=== PATIENT | male | born 1980 | race Caucasian/White ===

== ENCOUNTER 2018-05-21 10:52 | Emergency (ER) | payer BC, SELFPAY ==
[2018-05-21 10:53] VITALS: BP 144/79; PULSE 69; RESP 18; TEMP 36.6; O2SAT 99; BMI 27.2
--- NOTE | 2018-05-21 11:04 | RAD_ITS ---
STUDY: X-RAY - RIGHT HAND, ATTENTION FOURTH FINGER REASON FOR EXAM: Male, 38 years old. Smash injury TECHNIQUE: 3 view(s) of the finger were obtained. COMPARISON: None. FINDINGS: Mildly displaced through the distal tuft of the fourth digit with subjacent soft tissue injury. RAD/Finger(s) Min 2 Views IMPRESSION: As above Electronically Signed: George Allen DO at 11:35 EDT Tel , Service support ,
--- NOTE | 2018-05-21 12:28 | ED.VISSUMM ---
- ER Visit Summary Date of Service: 05/21/18 Chief Complaint: Crush injury History of Present Illness: The patient is a 38 M with a crush injury to his right ring finger. This was yesterday. He dropped a weight on the finger. Last tetanus immunization was less than 3 years ago. No other injuries or complaints today. Physical Examination: Vitals unremarkable. Alert and oriented. Appropriate. Right ring finger shows a crush injury to the distal phalanx. Proximal nail is out of the matrix. There is a 1 cm laceration transversely across the nailbed. This does extend through the radial and ulnar sides of the nailbed into the skin, several millimeters on each side. Neurovascular intact distally. Test Results: X-rays show a distal tuft fracture. Emergency Department Course and Treatment: Tetanus is up-to-date. Digital block was performed. Patient tolerated this well. Nail was completely removed. He did have a transverse laceration through the bed. This was cleaned and explored under good hemostasis. Good alignment. No tissue was missing. This was closed with tissue adhesive. Nail was cleaned and replaced using the Saleem et al technique. Additional cutaneous sutures were placed about 1 on each side of the nailbed to close the skin laceration. Patient tolerated this well. Neurovascular intact distally afterwards. He was started on Keflex and was referred to hand surgery for follow-up. He was referred to Dr. More. He is also established with the [facility]. He was given the number to Dr. Armstrong as well if he has difficulty following up with Dr. More over the next week. Return for any new or worsening issues. Treatment Plan: As above Disposition: Discharged Impression: 1. Right fourth finger nailbed laceration 1 cm 2. Right fourth finger tuft fracture This note was generated with Clear[employer] software. It may contain incorrect words, spelling, and punctuation that were not noted in review of the chart prior to signing ED Disposition - Plan for ED Patient: Chief Complaint: Upper Extremity Injury Referrals: Jonathon Blackburn MD [Primary Care Provider] -
--- NOTE | 2018-05-21 12:32 | ED.DCSUM_ITS ---
- ER Visit Summary Date of Service: 05/21/18 Chief Complaint: Crush injury History of Present Illness: The patient is a 38 M with a crush injury to his right ring finger. This was yesterday. He dropped a weight on the finger. Last tetanus immunization was less than 3 years ago. No other injuries or comp laints today. Physical Examination: Vitals unremarkable. Alert and oriented. Appropriate. Right ring finger shows a crush injury to the distal phalanx. Proximal nail is out of the matrix. There is a 1 cm laceration transversely across the nailbed. This does extend through the radial and ulnar sides of the nailbed into the skin, several millimeters on each side. Neurovascular intact distally. Test Results: X-rays show a distal tuft fracture. Emergency Department Course and Treatment: Tetanus is up-to-date. Digital block was performed. Patient tolerated this well. Nail was completely removed. He did have a transverse laceration through the bed. This was cleaned and explored under good hemostasis. Good alignment. No tissue was missing. This was closed with tissue adhesive. Nail was cleaned and replaced using the Saleem et al technique. Additional cutaneous sutures were placed about 1 on each side of the nailbed to close the skin laceration. Patient tolerated this well. Neurovascular intact distally afterwards. He was started on Keflex and was referred to hand surgery for follow-up. He was referred to Dr. More. He is also established with the [place] [facility]. He was given the number to Dr. Armstrong as well if he has difficulty following up with Dr. More over the next week. Return for any new or worsening issues. Treatment Plan: As above Disposition: Discharged Impression: 1. Right fourth finger nailbed laceration 1 cm 2. Right fourth finger tuft fracture This note was generated with Learn[employer] software. It may contain incorrect words, spelling, and punctuation that were not noted in review of the chart prior to signing ED Disposition - Plan for ED Patient: Chief Complaint: Upper Extremity Injury Referrals: Jonathon Blackburn MD [Primary Care Provider] -
--- NOTE | 2018-05-21 12:32 | ED.DEP ---
ED Disposition - Plan for ED Patient: Chief Complaint: Upper Extremity Injury Instructions: ED Removal Nail Prescriptions: Cephalexin [Keflex] 500 mg PO Q6 #40 cap Referrals: Warren More MD [STAFF PHYSICIAN] - Jonathon Armstrong MD [NON-STAFF] -
[2018-05-21] MEDS: Cephalexin 250 MG Capsule 500 MG PO (12:48)
== END 2018-05-21 12:51 | disposition home or self-care (01) ==
PROVIDERS: Emergency Provider Emergency Medicine; Family Provider Family Medicine; PCP Family Medicine
DX: S62.634A Displaced fracture of distal phalanx of right ring finger, initial encounter for closed fracture (principal); S61.314A Laceration without foreign body of right ring finger with damage to nail, initial encounter; W22.8XXA Striking against or struck by other objects, initial encounter; Y93.9 Activity, unspecified; Y92.9 Unspecified place or not applicable
CPT/HCPCS: 11760; 73140; 99282

== ENCOUNTER → 2019-08-03 09:16 | Outpatient (CLI) | payer BC, SELFPAY ==
[2019-08-03 11:29] LABS: Anion Gap 6 (5-15); BUN 20 mg/dL (7-18); Calcium,Total 8.9 mg/dL (8.5-10.1); Chloride 109 mmol/L (98-107); Cholesterol 167 mg/dL (200); EST Glomerular Filtration Rate 88 mL/min (>60); Est Glom Filt Rate - Afr Amer 106 mL/min (>60); Glucose 95 mg/dL (74-106); High Density Lipoprotein 70 mg/dL; Potassium 4.9 mmol/L (3.5-5.1); Sodium Level 141 mmol/L (136-145); Triglycerides 52 mg/dL; Very Low Density Lipoprotein 10 mg/dL (5-40)
== END ==
PROVIDERS: Family Provider Family Medicine; PCP Family Medicine; Visit Provider Family Medicine
DX: Z13.1 Encounter for screening for diabetes mellitus (principal); Z13.220 Encounter for screening for lipoid disorders
CPT/HCPCS: 36415; 80048; 80061

== ENCOUNTER 2021-01-07 07:32 | Emergency (ER) | payer BC, SELFPAY ==
[2021-01-07 07:33] VITALS: BP 136/76; PULSE 87; RESP 16; TEMP 36.6; O2SAT 97; BMI 27.9
--- NOTE | 2021-01-07 07:50 | CT_ITS ---
STUDY: CT ABDOMEN AND PELVIS WITH CONTRAST REASON FOR EXAM: Male, 40 years old. 5 day history of diffuse abdominal pain with nausea and diarrhea. RADIATION DOSAGE (If Supplied By Facility): CTDIvol = ( 12.14 ) mGy, DLP = ( 906.45 ) mGycm TECHNIQUE: Transaxial images were obtained from the dome of the diaphragm to the symphysis pubis without oral contrast. IV 100mL Isovue-300 was administered. Sagittal and coronal images were reconstructed. Individualized dose optimization techniques were used for this CT. COMPARISON: None. FINDINGS: Minimal degree of dependent bibasilar atelectasis. The visualized portions of the heart are within normal limits. Normal liver. Normal gallbladder and extrahepatic biliary system. Normal spleen. Normal pancreas. Normal bilateral adrenal glands. Normal right kidney. Normal left kidney. There is a small hiatal hernia. Normal small intestine. There is evidence of diffuse edematous changes and thickening of the colon suggestive of a pancolitis. Mild increased markings in the surrounding peritoneal fat. The appendix is visualized and appears normal. There is scattered atherosclerotic calcification of the abdominal aorta, without a demonstrated aneurysm. Normal inferior vena cava. There is borderline retroperitoneal lymphadenopathy with enlarged nodes no greater than 10mm in the short axis diameter. Normal urinary bladder. Small amount of free fluid is seen in the pelvis. Normal abdominal wall. There is evidence of prior screw fixation of the posterior aspect of the left acetabulum. Well-corticated bony fragments are seen overlying the left hip joint most likely secondary to prior trauma. CT/Abdomen/Pelvis W IV Cont ONLY IMPRESSION: Findings in keeping with the pancolitis. Small amount of fluid is seen in the pelvis. Electronically Signed: José Fernandez MD at 9:04 EDT , Service support ,
--- NOTE | 2021-01-07 07:51 | EDS_ITS ---
HPI HPI - GI History of Present Illness Chief Complaint: Abd Pain Informant: patient and spouse/S.O. Abdominal Pain/Flank Pain Onset: Days Context: Gradual Onset Timing: Continuous Location: Diffuse Current Severity: Mild Maximum Severity: Mild Worsened by: Nothing Nausea/Vomiting/Emesis GI Symptom: Positive for Nausea; Negative for Vomiting Severity: Mild Diarrhea/Melena/Hematochezia GI Symptom: Positive for Diarrhea and Hematochezia; Negative for Melena Onset: Today Stool Quality: Positive for Loose and Watery Severity: Mild Associated Symptoms Associated Symptoms: Negative for Dysuria, Frequency and Hematuria Narrative Narrative: Middle-age man is seen in past medical history. No prior GI surgeries. States that he has had abdominal discomfort diffusely for last 5 days beginning last Tuesday. Fever as high as 100 201. Nausea but no vomiting. Diarrhea. About 10 episodes yesterday. Patient is accompanied by his . They drink city water at home. No recent travel, surgery nor any recent antibiotics. No one else at home has similar symptoms. Patient is fully vaccinated for Covid and had Covid. He saw his primary care physician yesterday. He denies any dysuria. He did have a small amount of blood in his stool this morning after multiple episodes of diarrhea in the last several days. No melena. Prior similar symptoms: No Recent Illness/Hospitalization: No PFSH PFSH Medical History (Updated 01/07/21 @ 10:[address] Serafin Allen MD) Hip dislocation, left no medical history Home Medications ciprofloxacin HCl [Cipro] 500 mg PO BID #14 tab 01/07/21 [Rx Last Taken Unknown] metronidazole [Flagyl] 500 mg PO TID 7 Days #21 tab 01/07/21 [Rx Last Taken Unknown] Allergy/AdvReac Type Severity Reaction Status Date / Time No Known Allergies Allergy Verified 01/07/21 07:36 Social History Smoking Status: Never smoker ROS ROS ED ROS Narrative Patient describes diarrhea, abdominal pain and nausea last 4 to 5 days. Review of Systems ROS Unobtainable: Denies due to encephalopathy Constitutional Constitutional ED: Reports fever(s); Denies chills ENT ENT ED: Denies ear pain or sore throat Cardiovascular Cardiovascular: Denies chest pain or racing heartbeat Respiratory/Chest Respiratory/Chest: Denies cough or dyspnea Gastrointestinal Gastrointestinal: Reports abdominal pain, diarrhea and nausea; Denies constipation, melena or vomiting Genitourinary Genitourinary ED: Denies dysuria, hematuria or urinary frequency Musculoskeletal Musculoskeletal: Denies arthralgias or myalgias Integumentary Denies abscess or rash Neurologic Neurologic: Denies headache(s) or weakness Psychiatric Psychiatric: Denies anxiety or depression Endocrine Endocrinology: Denies polydipsia or polyuria Hematologic/Lymphatic Hematologic/Lymphatic: Denies easy bruising Allergic/Immunologic Allergic/Immunologic ED: Denies urticaria EXAM Physical Exam Narrative Exam Narrative: Well-appearing middle-age male. at bedside. Vital signs stable and afebrile. He does not look septic nor toxic. He does not look dehydrated. HEENT exam unremarkable. Moist extremities. Lungs clear to auscultation. Heart regular rhythm no murmur. Abdomen soft nontender normal bowel sounds no peritoneal signs. No right upper right lower quadrant tenderness. No signs of obstruction. Normal bowel sounds. Soft. Moving all 4 extremities. Skin unremarkable. Back nontender. Neurologically is awake alert with no focal motor deficits. Const Vital Signs: 01/07/21 07:33 Temperature 97.8 F Temperature Source Temporal Pulse Rate 87 Respiratory Rate 16 Blood Pressure 136/76 H Blood Pressure Mean 96 Pulse Ox 97 Oxygen Delivery Method Room Air Positive well nourished and well developed; Negative for obese, cachectic or contractures General Appearance ED: well developed; Negative for cachectic or contractures Nutritional Appearance: Negative for cachectic or obese HEENT Reports moist mucous membranes normocephalic and atraumatic; Negative for trauma or tenderness Eyes PERRL and EOMs intact bilaterally General Eye ED: Negative for pale conjunctiva Neck no lymphadenopathy, supple and no JVD General: Negative for tenderness Resp normal respiratory effort and clear to auscultation bilaterally Auscultation: Negative for rales, rhonchi or wheezes Cardio regular rate, regular rhythm, S1 normal heart sound and no murmurs GI non-tender, non-distended and no masses Inspection: Negative for abdominal distention Auscultation: normoactive bowel sounds Palpation: soft; Negative for tender, guarding, rigid or rebound tenderness pres ent Back/Spine no CVA tenderness General Back: Negative for CVA tenderness Cervical Spine: Negative for cervical spine tenderness Extremity full ROM General Extremety ED: Negative for edema or tenderness General Extremity: Negative for edema Neuro CN's II-XII intact bilaterally and moves all extremities Sensorium / Orientation: alert, oriented to person, oriented to place, oriented to time and orientation impaired; Negative for confused, lethargic or stuporous Psych mental status grossly normal and thought process normal Skin no wounds Lesions: no lesions Rashes: no rashes MDM MDM MDM Narrative Medical decision making narrative: Middle-age male with 5-day history of loose stools with intermittent low-grade fever. Exam is benign. Abdomen is benign. He will undergo screening labs along with a CAT scan his abdomen pelvis and receive IV fluids. I spoke with general surgery on-call after the CAT scan results. He felt the patient would be best served by a GI work-up in case this is inflammatory bowel disease. I spoke to Dr. Antonio Wilhelm of GI he knows the patient's family and will follow up with him as an outpatient. He did want me to start the patient on Flagyl and Cipro. This was all discussed with the patient and his . Lab Data Attestation: I reviewed the patient's lab results. Lab results narrative: Patient CBC was unremarkable with a white count of 7 hemoglobin 14. No bands. Chemistries, liver enzymes and lipase were all normal. Labs: Laboratory Results - last 24 hr 01/07/21 01/07/21 07:50 07:50 WBC 7.5 RBC 4.88 Hgb 14.7 Hct 42.2 MCV 86.5 MCH 30.1 MCHC 34.8 RDW Std Deviation 37.2 RDW Coeff of [place] 11.7 Plt Count 219 MPV 9.3 Immature Gran % (Auto) 0.700 Neut % (Auto) 69.6 Lymph % (Auto) 17.6 L [place] % (Auto) 11.3 H Eos % (Auto) 0.1 Baso % (Auto) 0.7 Absolute Neuts (auto) 5.2 Absolute Lymphs (auto) 1.31 Nucleated RBC % 0 Sodium 137 Potassium 3.9 Chloride 106 Carbon Dioxide 25.0 Anion Gap 6 BUN 11 Creatinine 1.07 Estim Creat Clear Calc 93.81 Est GFR (MDRD) Af Amer 98 Est GFR (MDRD) Non-Af 81 BUN/Creatinine Ratio 10.3 Glucose 98 Calcium 9.2 Total Bilirubin 0.90 Direct Bilirubin 0.21 AST 17 ALT 18 Alkaline Phosphatase 64 Total Protein 7.7 Albumin 3.8 Globulin 3.9 Lipase 233 Radiography Diagnostic Testing: Radiology Impression Abdomen/Pelvis CT 01/07/21 07:50 IMPRESSION: Findings in keeping with the pancolitis. Small amount of fluid is seen in the pelvis. Electronically Signed: José Fernandez MD at 9:04 EDT , Service support , Discharge Plan Triage Chief Complaint: Abd Pain ED Provider: Serafin Allen Dx/Rx/DC Orders Clinical Impression: Colitis, Abdominal pain of unknown cause Instructions: ED Abd Pain Cause Unkn Male Inf Td Prescriptions: New metronidazole [Flagyl] 500 mg tablet 500 mg PO TID 7 Days Qty: 21 RF: 0 ciprofloxacin HCl [Cipro] 500 mg tablet 500 mg PO BID Qty: 14 RF: 0 Primary Care Provider: Jonathon Olivas Referrals: Jonathon Olivas MD [Primary Care Provider] - Antonio Wilhelm MD [NON-STAFF] - As soon as possible Activity Restrictions/Additional Instructions: Call and follow-up with Dr. Antonio Wilhelm soon as possible. Cipro in and Flagyl daily as prescribed for 1 week. Plenty of fluids and rest. Tylenol and/or Motrin for pain. Disposition Disposition: Home, self care
[2021-01-07] MEDS: 0.9% Normal Saline 1,000 ML 1000 ML IV (07:57)
[2021-01-07 08:13] LABS: Absolute Lymphocyte Count 1.31 X10^3/uL (0.83-4.51); Absolute Neutrophil Count 5.2 X10^3/uL (2.0-7.7); Basophil# 0.05 X10^3/uL; Basophil% 0.7 % (0-1); Eosinophil# 0.01 X10^3/uL; Eosinophils% 0.1 % (0-5); Hematocrit 42.2 % (40-54); Hemoglobin 14.7 g/dL (13.0-16.5); Lymphocyte # 1.31 X10^3/ul (0.83-4.51); Lymphocyte % 17.6 % (19-41); Mean Corp Hgb Conc 34.8 g/dL (32-36); Mean Corpuscular Hgb 30.1 pg (27.0-32.0); Mean Corpuscular Volume 86.5 fL (80-94); Mean Platelet Vol. 9.3 fl (6.2-12.0); Monocyte# 0.84 X10^3/uL; Monocyte% 11.3 % (0-10); NRBC Flagged by Analyzer 0 % (0-5); Neutrophil % 69.6 % (47-70); Platelet Count 219 K/mm3 (150-450); RBC Distribution Width CV 11.7 % (11.6-14.6); RBC Distribution Width SD 37.2 fl (35.1-43.9); Red Blood Count 4.88 M/mm3 (4.6-6.2); White Blood Count 7.5 K/mm3 (4.4-11.0)
[2021-01-07 08:20] LABS: AST(SGOT) 17 U/L (15-37); Alanine Aminotransfer ALT/SGPT 18 U/L (16-61); Albumin, Serum 3.8 g/dL (3.2-5.0); Alkaline Phosphatase 64 U/L (45-117); Anion Gap 6 (5-15); BUN 11 mg/dL (7-18); BUN/Creat Ratio 10.3 RATIO (10-20); Bilirubin, Direct 0.21 mg/dL (0.00-0.30); Calcium,Total 9.2 mg/dL (8.5-10.1); Chloride 106 mmol/L (98-107); Creatinine, Serum 1.07 mg/dL (0.70-1.30); EST Glomerular Filtration Rate 81 mL/min (>60); Est Glom Filt Rate - Afr Amer 98 mL/min (>60); Estimated Creatinine Clearance 93.81 ml/min; Globulin 3.9 g/dL (2.2-4.2); Glucose 98 mg/dL (74-106); Lipase 233 U/L (73-393); Potassium 3.9 mmol/L (3.5-5.1); Protein, Total 7.7 g/dL (6.4-8.2); Sodium Level 137 mmol/L (136-145)
[2021-01-07 10:21] VITALS: BP 128/69; PULSE 71; RESP 16; O2SAT 98
--- NOTE | 2021-01-07 11:30 | ED.RN ---
PER DR TOVAR REQUEST, THIS NURSE CONTACTED PT ABOUT STOOL SAMPLE RESULTS. INFORMED TO CONTINUE TO TAKE THE 2 ATB. UNSURE THIS IS CAUSING HIS ISSUES. CONTINUE TO FOLLOWUP WITH GI DOCTOR
== END 2021-01-07 10:22 | disposition home or self-care (01) ==
PROVIDERS: Emergency Provider Emergency Medicine; PCP Family Medicine
DX: K52.9 Noninfective gastroenteritis and colitis, unspecified (principal); R10.9 Unspecified abdominal pain; R19.7 Diarrhea, unspecified; Z86.16 Personal history of COVID-19
CPT/HCPCS: 74177; 80048; 80076; 83690; 85025; 87506; 96360; 96361; 99284; J7030; Q9967; A4216

== ENCOUNTER → 2023-02-09 | Outpatient (CLI) | payer BC, SELFPAY ==
[2023-02-09 09:49] LABS: Absolute Lymphocyte Count 1.53 X10^3/uL (0.83-4.51); Absolute Neutrophil Count 1.9 X10^3/uL (2.0-7.7); Basophil# 0.06 X10^3/uL; Basophil% 1.5 % (0-1); Eosinophil# 0.08 X10^3/uL; Hematocrit 38.1 % (40-54); Hemoglobin 13.3 g/dL (13.0-16.5); Lymphocyte # 1.53 X10^3/ul (0.83-4.51); Lymphocyte % 38.5 % (19-41); Mean Corp Hgb Conc 34.9 g/dL (32-36); Mean Corpuscular Hgb 30.4 pg (27.0-32.0); Mean Platelet Vol. 9.1 fl (6.2-12.0); Monocyte% 10.1 % (0-10); NRBC Flagged by Analyzer 0 % (0-5); Neutrophil # 1.88 X10^3/uL (2.7-7.7); Neutrophil % 47.4 % (47-70); Platelet Count 220 K/mm3 (150-450); RBC Distribution Width CV 12.1 % (11.6-14.6); RBC Distribution Width SD 38.9 fl (35.1-43.9); Red Blood Count 4.38 M/mm3 (4.6-6.2)
[2023-02-09 10:36] LABS: ALB/GLOB Ratio 1.2 RATIO (0.9-2.4); AST(SGOT) 19 U/L (15-37); Alanine Aminotransfer ALT/SGPT 24 U/L (16-61); Albumin, Serum 3.9 g/dL (3.2-5.0); Alkaline Phosphatase 43 U/L (45-117); Anion Gap 5 (5-15); BUN 18 mg/dL (7-18); BUN/Creat Ratio 18.3 RATIO (10-20); Calcium,Total 9.1 mg/dL (8.5-10.1); Chloride 108 mmol/L (98-107); Cholesterol 175 mg/dL (200); Creatinine, Serum 0.98 mg/dL (0.70-1.30); EST Glomerular Filtration Rate 88 mL/min (>60); Est Glom Filt Rate - Afr Amer 107 mL/min (>60); Globulin 3.3 g/dL (2.2-4.2); Glucose 93 mg/dL (74-106); High Density Lipoprotein 53 mg/dL; Potassium 4.5 mmol/L (3.5-5.1); Protein, Total 7.2 g/dL (6.4-8.2); Sodium Level 138 mmol/L (136-145); Thyroid Stim Hormone (TSH) 2.07 uIU/mL (0.358-3.74); Triglycerides 78 mg/dL; Very Low Density Lipoprotein 16 mg/dL (5-40)
== END | disposition home or self-care (01) ==
LOC: MFPLAB 09:04
PROVIDERS: PCP Family Medicine; Visit Provider Family Medicine
DX: E78.00 Pure hypercholesterolemia, unspecified (principal); F41.9 Anxiety disorder, unspecified
CPT/HCPCS: 36415; 80053; 80061; 84443; 85025

== ENCOUNTER → 2024-07-26 | Outpatient (CLI) | payer BC, SELFPAY ==
--- NOTE | 2024-07-26 13:18 | RAD_ITS ---
STUDY: BARIUM ENEMA. REASON FOR EXAM: Male, 44 years old. INCOMPLETE COLONOSCOPY FLUOROSCOPY TIME (if supplied): ( 72nd ) minutes/seconds. 81.9 mGy. 14 images were obtained. TECHNIQUE: A gill box tender view was obtained. Gas pattern is unremarkable. Following this, contrast was injected through the rectum. The entire colon was opacified. COMPARISON: None. FINDINGS: There is redundancy of the sigmoid colon. No evidence of obstruction to the flow of contrast antegrade or retrograde. RAD/Barium Enema No Air Cont IMPRESSION: Unremarkable barium enema. Electronically Signed: José Fernandez MD at 15:00 EST ,
== END | disposition home or self-care (01) ==
PROVIDERS: PCP Family Medicine; Referring Provider Internal Medicine Gastroenterology; Visit Provider Internal Medicine Gastroenterology
DX: Q43.8 Other specified congenital malformations of intestine (principal)
CPT/HCPCS: 74270

== ENCOUNTER → 2024-12-11 | Outpatient (CLI) | payer BC, SELFPAY ==
[2024-12-11 10:25] LABS: Absolute Lymphocyte Count 1.83 X10^3/uL (0.83-4.51); Absolute Neutrophil Count 1.6 X10^3/uL (2.0-7.7); Basophil# 0.05 X10^3/uL; Basophil% 1.2 % (0-1); Eosinophils% 2.5 % (0-5); Hematocrit 40.7 % (40-54); Hemoglobin 14.2 g/dL (13.0-16.5); Lymphocyte # 1.83 X10^3/ul (0.83-4.51); Lymphocyte % 45.2 % (19-41); Mean Corp Hgb Conc 34.9 g/dL (32-36); Mean Corpuscular Hgb 29.5 pg (27.0-32.0); Mean Corpuscular Volume 84.6 fL (80-94); Mean Platelet Vol. 9.5 fl (6.2-12.0); Monocyte# 0.39 X10^3/uL; Monocyte% 9.6 % (0-10); NRBC Flagged by Analyzer 0 % (0-5); Neutrophil # 1.64 X10^3/uL (2.7-7.7); Neutrophil % 40.5 % (47-70); Platelet Count 259 K/mm3 (150-450); RBC Distribution Width CV 12.4 % (11.6-14.6); RBC Distribution Width SD 37.8 fl (35.1-43.9); Red Blood Count 4.81 M/mm3 (4.6-6.2); White Blood Count 4.1 K/mm3 (4.4-11.0)
[2024-12-11 11:19] LABS: ALB/GLOB Ratio 1.7 RATIO (0.9-2.4); AST(SGOT) 34 U/L (<=37); Alanine Aminotransfer ALT/SGPT 23 U/L (<=46); Albumin, Serum 4.9 g/dL (3.5-5.0); Alkaline Phosphatase 56 U/L (40-129); Anion Gap 10 (5-15); BUN 24 mg/dL (4-19); BUN/Creat Ratio 22.2 RATIO (10-20); Calcium,Total 9.7 mg/dL (7.6-11.0); Carbon Dioxide 23.8 mmol/L (21.0-32.0); Chloride 101 mmol/L (98-108); Cholesterol 214 mg/dL (<=200); EST Glomerular Filtration Rate 84 (>60); Globulin 2.9 g/dL (2.2-4.2); Glucose 93 mg/dL (70-99); High Density Lipoprotein 54 mg/dL; Low Density Lipoprotein Calc. 142 mg/dL; PSA,Total - Annual Screen 0.52 ng/mL (0.02-4.00); Potassium 4.4 mmol/L (3.3-5.1); Protein, Total 7.7 g/dL (5.9-8.4); Sodium Level 135 mmol/L (133-145); Total Bilirubin 0.57 mg/dL (0.00-1.30); Triglycerides 89 mg/dL; Very Low Density Lipoprotein 18 mg/dL (5-40); cholesterol:hdl ratio screen 3.96
== END | disposition home or self-care (01) ==
LOC: MFPLAB 09:01
PROVIDERS: PCP Family Medicine; Referring Provider Family Medicine; Visit Provider Family Medicine
DX: Z00.00 Encounter for general adult medical examination without abnormal findings (principal); Z12.5 Encounter for screening for malignant neoplasm of prostate
CPT/HCPCS: 36415; 80053; 80061; 84153; 84443; 85025; G0103